=== PATIENT | male | born 1955 | race Caucasian/White ===

== ENCOUNTER 2020-03-23 17:39 | Emergency (ER) | payer MEDICAID ==
[~2020-03-23] VITALS: Ht 180.3 cm; Wt 79.0 kg
[2020-03-23] MEDS ORDERED: SODIUM CHLORIDE FLUSH 10ML SYR IVF ONE (18:00)
[2020-03-23 18:26] LABS: BASOPHILS % (AUTO) 1 % (0-1); EOSINOPHILS % (AUTO) 3 % (1-7); LYMPHOCYTES % (AUTO) 34 % (22-44); MEAN CORPUSCULAR HEMOGLOBIN 29.6 pg (27.5-34.5); MEAN CORPUSCULAR HGB CONC 33.3 g/dL (33.2-36.2); MEAN PLATELET VOLUME 7.5 fL (7.4-10.4); MONOCYTES % (AUTO) 7 % (2-9); NEUTROPHILS % (AUTO) 56 % (42-75); PLATELET COUNT 214 x10^3/uL (130-400); RED BLOOD COUNT 4.52 x10^6/uL (4.38-5.82)
[2020-03-23 18:30] LABS: MD NO
[2020-03-23 18:36] LABS: ALANINE AMINOTRANSFERASE 24 U/L (12-78); ALBUMIN 3.8 g/dL (3.4-5.0); ANION GAP 7 mmol/L (5-15); CALCIUM 8.1 mg/dL (8.5-10.1); CHLORIDE 111 mmol/L (98-107); CREATININE 0.93 mg/dL (0.7-1.3)
[2020-03-23 18:41] LABS: ALKALINE PHOSPHATASE 59 U/L (45-117); BILIRUBIN,TOTAL 0.5 mg/dL (0.2-1.0); TOTAL PROTEIN 6.7 g/dL (6.4-8.2); TROPONIN I 0.017 ng/mL (0.000-0.045)
--- NOTE | 2020-03-23 19:22 | NUR ---
RN ATTEMPTED TO INTERAGATE PT'S DEFIBILITOR WITH [employer]ON[employer] WITHOUT SUCCESS. PT SAID HE LOST HIS CARD FOR DEFIBILATOR.
--- NOTE | 2020-03-23 19:50 | NUR ---
RN INTERIGATED DEFIBILATOR WITH [facility] AND IT WORKED. ER AWAITING REPORT. PT RESTING IN BED. NO CHANGE TO PT CONDITION. PT ON MONITOR WITH PT VSS.
--- NOTE | 2020-03-23 20:55 | NUR ---
PT RESTING IN BED, PT ON MONITOR. PT VSS. PT DENIED ANY WANTS OR NEEDS AT THIS TIME. [facility] REP CALLED AND SAID THE THERE WAAS NO SHOCK EVENT THAT SHOWED ON PT'S DEFIBILATOR INTERIGATION. SHE DID SAY THERE WAS 47X IN THE LAST 3 DAYS THAT THE PT HR WAS [phone].
[2020-03-23] MEDS ORDERED: CARVEDILOL 3.125 MG TABLET ONE (21:14)
[2020-03-23] MEDS ORDERED: CLOPIDOGREL 75 MG TABLET ONE (21:14)
[2020-03-23] MEDS ORDERED: CARVEDILOL 6.25 MG TABLET PO ONE (21:30)
[2020-03-23] MEDS ORDERED: CLOPIDOGREL MC SCH (21:30)
--- NOTE | 2020-03-23 21:51 | NUR ---
TASK RN: DC EDUCATION PROVIDED, PT DEMONSTRATES UNDERSTANDING. PT PROVIDED WITH [employer] FOR TRANSPORT TO BUS STATION PER PT'S REQUEST AND A BUS PASS TO OBTAIN MEDICATIONS IN AM. PT AMBULATED STEADILY TO DC WITH RN AND ALL OF HIS BELONGINGS. PT DRESSED APPROPRIATELY FOR WEATHER.
[2020-03-23 21:52] VITALS: BP 120/79
[2020-03-24] MEDS ORDERED: CLOPIDOGREL 75 MG TABLET PO SCH (09:00)
== END 2020-03-23 21:54 | disposition home or self-care (01) ==
LOC: ED 20:08
DX: S27.0XXA Traumatic pneumothorax, initial encounter (principal); R07.89 Other chest pain; I47.1 Supraventricular tachycardia; Z72.9 Problem related to lifestyle, unspecified; Z87.891 Personal history of nicotine dependence; X58.XXXA Exposure to other specified factors, initial encounter; Y93.89 Activity, other specified; Y92.89 Other specified places as the place of occurrence of the external cause; Y99.8 Other external cause status
CPT/HCPCS: 36415; 71045; 80053; 83735; 84484; 85025; 93005; 99285

== ENCOUNTER 2020-03-25 14:18 | Emergency (ER) | payer MEDICAID ==
[~2020-03-25] VITALS: Ht 180.3 cm; Wt 85.0 kg
[2020-03-25] MEDS ORDERED: METOPROLOL TARTRATE 50 MG TAB PO ONE (15:00)
[2020-03-25] MEDS ORDERED: METOPROLOL TARTRATE 50 MG TAB ONE (15:12)
[2020-03-25 15:16] LABS: BASOPHILS % (AUTO) 1 % (0-1); EOSINOPHILS % (AUTO) 0 % (1-7); LYMPHOCYTES % (AUTO) 15 % (22-44); MEAN CORPUSCULAR HEMOGLOBIN 29.8 pg (27.5-34.5); MEAN CORPUSCULAR HGB CONC 33.5 g/dL (33.2-36.2); MEAN PLATELET VOLUME 7.5 fL (7.4-10.4); MONOCYTES % (AUTO) 9 % (2-9); NEUTROPHILS % (AUTO) 75 % (42-75); PLATELET COUNT 209 x10^3/uL (130-400); RED CELL DISTRIBUTION WIDTH 20.1 % (9.4-14.8)
--- NOTE | 2020-03-25 15:19 | NUR ---
PT OXYGEN DOWN TO 83% ROOM AIR THEN BACK TO 93% PERIODICALLY. PT PLACED ON OXYGEN 2L VIA [employer]. [employer] LEADER PER JUN. PT CONNECTED TO ALL MONITORING. CALL LIGHT IN REACH. WARM BLANKET PROVIDED.
[2020-03-25 15:23] LABS: MD MORPH REVIEW ONLY
[2020-03-25 15:26] LABS: ALANINE AMINOTRANSFERASE 27 U/L (12-78); ALBUMIN 3.6 g/dL (3.4-5.0); ANION GAP 9 mmol/L (5-15); CALCIUM 8.3 mg/dL (8.5-10.1); CHLORIDE 111 mmol/L (98-107); CREATININE 0.77 mg/dL (0.7-1.3)
[2020-03-25 15:30] LABS: ALKALINE PHOSPHATASE 73 U/L (45-117); BILIRUBIN,TOTAL 0.4 mg/dL (0.2-1.0); TOTAL PROTEIN 6.5 g/dL (6.4-8.2); TROPONIN I 0.022 ng/mL (0.000-0.045)
[2020-03-25 16:08] VITALS: BP 131/82
--- NOTE | 2020-03-25 16:09 | NUR ---
PT RESTING COMFORTABLY ON GURNEY. [place].
[2020-03-25 16:32] LABS: <PLATELET ESTIMATE> ADEQUATE; <PLT MORPHOLOGY> NORMAL PLT MORPH; ANISOCYTOSIS 1+
== END 2020-03-25 17:22 | disposition home or self-care (01) ==
LOC: ED 14:30
DX: R00.2 Palpitations (principal); R06.00 Dyspnea, unspecified; J18.1 Lobar pneumonia, unspecified organism; Z20.828 Contact with and (suspected) exposure to other viral communicable diseases
CPT/HCPCS: 36415; 71045; 80053; 82310; 83735; 83880; 84484; 85025; 87635; 93005; 99285

== ENCOUNTER 2020-03-25 22:58 | Emergency (ER) | payer MEDICAID ==
[~2020-03-25] VITALS: Ht 180.3 cm; Wt 77.6 kg
[2020-03-25 23:03] VITALS: BP 101/63
--- NOTE | 2020-03-25 23:35 | NUR ---
pt to room from lobby
[2020-03-25] MEDS ORDERED: ALBUTEROL/IPRATROPIUM 2.5MG/0.5MG, 3 ML ONE (23:57)
[2020-03-25] MEDS ORDERED: AZITHROMYCIN 250 MG TABLET ONE (23:59)
[2020-03-26] MEDS ORDERED: AZITHROMYCIN 500 MG TABLET PO ONE
[2020-03-26] MEDS ORDERED: ALBUTEROL/IPRATROPIUM 2.5MG/0.5MG, 3 ML NPPB ONE
[2020-03-26 00:17] LABS: TROPONIN I 0.027 ng/mL (0.000-0.045)
[2020-03-26] MEDS ORDERED: FUROSEMIDE 40 MG TABLET PO ONE (01:30)
[2020-03-26] MEDS ORDERED: FUROSEMIDE 20 MG TABLET ONE (02:00)
== END 2020-03-26 02:10 | disposition home or self-care (01) ==
LOC: ED 23:44
DX: J98.01 Acute bronchospasm (principal); I11.0 Hypertensive heart disease with heart failure; I50.9 Heart failure, unspecified; J18.1 Lobar pneumonia, unspecified organism; J06.9 Acute upper respiratory infection, unspecified; Z72.9 Problem related to lifestyle, unspecified; Z95.0 Presence of cardiac pacemaker; F17.210 Nicotine dependence, cigarettes, uncomplicated
CPT/HCPCS: 36415; 83880; 84484; 93005; 94640; 99284; 99406; J7512; 99285

== ENCOUNTER 2020-04-05 13:08 | Emergency (ER) | payer MEDICAID ==
[~2020-04-05] VITALS: Ht 180.3 cm; Wt 74.3 kg
[2020-04-05] MEDS ORDERED: ASPIRIN 81 MG TABLET CHEW PO ONE (16:30)
[2020-04-05 16:45] LABS: BASOPHILS % (AUTO) 1 % (0-1); EOSINOPHILS % (AUTO) 1 % (1-7); LYMPHOCYTES % (AUTO) 19 % (22-44); MEAN CORPUSCULAR HEMOGLOBIN 30.4 pg (27.5-34.5); MEAN CORPUSCULAR HGB CONC 33.5 g/dL (33.2-36.2); MEAN PLATELET VOLUME 7.2 fL (7.4-10.4); MONOCYTES % (AUTO) 12 % (2-9); NEUTROPHILS % (AUTO) 68 % (42-75); PLATELET COUNT 333 x10^3/uL (130-400); RED BLOOD COUNT 4.18 x10^6/uL (4.38-5.82); RED CELL DISTRIBUTION WIDTH 19.5 % (9.4-14.8)
[2020-04-05 16:53] LABS: MD NO
[2020-04-05 16:56] LABS: ALANINE AMINOTRANSFERASE 35 U/L (12-78); ALBUMIN 3.1 g/dL (3.4-5.0); ANION GAP 5 mmol/L (5-15); CHLORIDE 105 mmol/L (98-107); CREATININE 0.95 mg/dL (0.7-1.3)
[2020-04-05 17:00] LABS: ALKALINE PHOSPHATASE 68 U/L (45-117); BILIRUBIN,TOTAL 0.5 mg/dL (0.2-1.0); TOTAL PROTEIN 7.2 g/dL (6.4-8.2)
[2020-04-05] MEDS ORDERED: FUROSEMIDE 40 MG TABLET PO STA (17:33)
[2020-04-05] MEDS ORDERED: FUROSEMIDE 40 MG TABLET ONE (17:52)
[2020-04-05] MEDS ORDERED: ASPIRIN 81 MG TABLET CHEW ONE (17:52)
[2020-04-05 17:59] VITALS: BP 103/73
--- NOTE | 2020-04-05 18:02 | NUR ---
PT MEDICATED PER ERP ORDER. VSS/UPDATED IN COMPUTER.
== END 2020-04-05 19:08 | disposition home or self-care (01) ==
LOC: ED 16:16
DX: J20.8 Acute bronchitis due to other specified organisms (principal); R06.00 Dyspnea, unspecified; R06.02 Shortness of breath; R09.81 Nasal congestion; R05 Cough; I50.9 Heart failure, unspecified; F17.210 Nicotine dependence, cigarettes, uncomplicated; Z95.0 Presence of cardiac pacemaker; Z76.0 Encounter for issue of repeat prescription
CPT/HCPCS: 36415; 71045; 80053; 83880; 85025; 93005; 99285; 99406